=== PATIENT | male | born 1980 | race Caucasian/White ===

== ENCOUNTER 2023-01-27 13:17 | Emergency (ER) | payer OTHER, SELFPAY ==
[2023-01-27 13:40] VITALS: BP 126/68; PULSE 62; RESP 18; TEMP 36.9; O2SAT 97; BMI 27.8
--- NOTE | 2023-01-27 13:42 | ED.EYEPROB ---
HPI - Eye Problem General Chief complaint: Eye Problems Stated complaint: medal in R eye ? Time Seen by Provider: 01/27/23 14:09 Source: patient History of Present Illness HPI Narrative: 42-year-old male with no significant past medical history presenting to the ED complaining of metal stuck in right eye x 2 days s/p using metal bumper on window sill. Admits was wearing protective glasses however felt metal bounce off face into eye. Denies wearing glasses or contacts. Denies vision loss/change, drainage, headache MD chief complaint: foreign body Related Data Previous Rx's Medication Instructions Recorded erythromycin 5 mg/gram (0.5 %) eye 0.5 inch ophthalmic (eye) QID #3.5 01/27/23 ointment grams Allergies Allergy/AdvReac Type Severity Reaction Status Date / Time No Known Allergies Allergy Verified 01/27/23 13:44 Review of Systems Review of Systems: Constitutional: No Fever, No Chills, No Night Sweats, No Fatigue, No Malaise ENT/Mouth: No Hearing loss, No Ear Pain, No Nasal Congestion, No sore throat, No Rhinorrhea, No Swallowing Difficulty Eyes: + Eye Pain, No Swelling, + Redness, + Foreign Body, No Discharge, No Vision Changes Cardiovascular: No Chest Pain, No SOB, No Palpitations Respiratory: No Cough, No Sputum, No Dyspnea Gastrointestinal: No Nausea, No Vomiting, No Diarrhea, No Constipation, No Abdominal pain Musculoskeletal: No joint pain, No Myalgias, No Joint Swelling Skin: No Skin Lesions, No rash Neuro: No Weakness, No Numbness, No Paresthesias, No Loss of Consciousness, No Dizziness, No Headache Yes all other systems are reviewed and are negative Constitutional: Constitutional: Reports as per HPI [facility] [place] Past Medical History Attestation statement: The following information was validated with the patient. Social History Social History Advance Directives: No Advance Directives Information Provided: No Physical Exam Vital Signs: Vital Signs: Last Vital Signs Temp 98.5 F 01/27/23 13:40 Pulse 62 01/27/23 13:40 Resp 18 01/27/23 13:40 BP 126/68 01/27/23 13:40 Pulse Ox 97 01/27/23 13:40 O2 Del Method Room Air 01/27/23 13:40 BMI result Body Mass Index 27.8 Const: General: cooperative, healthy appearing and no acute distress Orientation/consciousness: patient oriented x3 Limitations: no limitations HEENT: Head: Yes normal to inspection and Yes atraumatic Ears: hearing grossly normal bilaterally General nose exam: Normal external nose present Face and sinus: Yes normal facial exam Eyes: General: appearance normal, both eyes and all related structures Periorbital: periorbital findings normal Eyelids: Yes eyelids normal Conjunctivae: conjunctival abnormal right subconjunctival hemorrhage (small) Corneas: corneas abnormal on the right fluorescein used and foreign body metallic and at clock position (8); without a rust ring Pupils: Equal, round and reactive pupils present EOM: EOMs intact bilaterally Direct Ophthalmoscopy: normal light reflex and no photophobia Neck: Neck: Yes normal visual inspection and Yes no meningeal signs Resp: Effort & Inspection: normal respiratory effort and no respiratory distress Cardio: Rate: regular rate Skin: Rashes: no rashes Wounds: no wounds Neuro: General: patient oriented x3, tone normal and no meningeal signs Cranial nerves: Yes Equal, round and reactive pupils present Gait exam (Neuro): Normal gait present Extrem: General: Yes normal to inspection Medications Administered Discontinued Medications Generic Name Dose Route Start Last Admin Trade Name Freq PRN Reason Stop Dose Admin Erythromycin 1 cm 01/27/23 13:42 01/27/23 14:23 Erythromycin Base 0.5% Oph Oin 1 Gm Tube EYE-RIGHT 01/27/23 13:43 1 cm ONCE ONE Administration Fluorescein Sodium 1 strip 01/27/23 13:42 01/27/23 14:23 Fluorescein Sodium Strip EYE-RIGHT 01/27/23 13:43 1 strip ONCE ONE Administration Tetracaine HCl 1 drop 01/27/23 13:42 01/27/23 14:23 Tetracaine Hcl/Pf 0.5% Oph Gabriela 4 Ml Drops EYE-RIGHT 01/27/23 13:43 1 drop ONCE ONE Administration Medical Decision Making Medical Decision Making MDM Narrative: 42-year-old male with no significant past medical history presenting to the ED complaining of metal stuck in right eye x 2 days s/p using metal bumper on window sill. On exam vital signs stable, NAD, nontoxic appearing physical exam as above, small appreciable metal piece noted to right eye at 08:00 o'clock position, no rust ring. + uptake on fluorescein staining. After staining foreign body no longer present, eyelid everted. Eye flushed. No evidence of preseptal/septal cellulitis or ruptured globe Discussed need close follow-up with Ophthalmology Please refer to course for remaining clinical decision making, interpretation of labs/imaging results, and discussions with consultants and/or family members. Differential Diagnosis Differential Diagnoses: The differential diagnosis associated with the presentation includes As above Lab Data MDM Lab Attestation statement: I reviewed the patient's lab results. Radiology Impression Discussion of test interpretation with radiology: I have reviewed the radiologist's reading. External Record Review External record reviewed: Inpatient record, Office record, Outpatient record, Prior outpatient labs, Prior outpatient radiology, Primary care record and Outside ED record Discharge Plan Discharge Clinical Impression: Corneal abrasion, Foreign body in eye Patient Disposition: Home, Self-Care Instructions: Corneal Abrasion (DC), Eye Foreign Body (ED) Additional Instructions: You had a metal foreign body in your eye Use erythromycin ointment as prescribed new line please follow-up with ophthalmology If you develop visual loss/change return to the ED Prescriptions: New erythromycin 5 mg/gram (0.5 %) ointment 0.5 inch ophthalmic (eye) QID Qty: 3.5 0RF Referrals: Ze Day [Physician] - 3 days
[2023-01-27] MEDS: Fluorescein Sodium STRIP 1 STRIP EYE-RIGHT (14:23)
[2023-01-27] MEDS: Tetracaine HCl/PF 0.5% Oph Sol 4 ML DROPS 1 DROP EYE-RIGHT (14:23)
[2023-01-27] MEDS: Erythromycin Base 0.5% Oph Oin 1 GM TUBE 1 CM EYE-RIGHT (14:23)
== END 2023-01-27 14:33 | disposition home or self-care (01) ==
PROVIDERS: Emergency Provider Emergency Medicine; PCP Internal Medicine
DX: S05.01XA Injury of conjunctiva and corneal abrasion without foreign body, right eye, initial encounter (principal); H57.11 Ocular pain, right eye; X58.XXXA Exposure to other specified factors, initial encounter; Y93.89 Activity, other specified; Y92.9 Unspecified place or not applicable; Y99.9 Unspecified external cause status
CPT/HCPCS: 65222; 99282; 99284